=== PATIENT | female | born 1990 | race Caucasian/White ===

== ENCOUNTER 2017-04-12 19:51 | Emergency (ER) | payer BC ==
[~2017-04-12 19:51] MED LIST: LO LTAB PO
[2017-04-12 19:54] VITALS: BP 158/108; PULSE 117; RESP 22; TEMP 98; O2SAT 100
[2017-04-12] MEDS ORDERED: SERT-132 PO (20:13)
--- NOTE | 2017-04-12 20:18 | PD ---
HPI Chief Complaint: Suicide Ideation/Attempt Time Seen by Provider: 20:04 Travel History International Travel<30 days: No Contact w/Intl Traveler<30days: No Traveled to known affect area: No History of Present Illness HPI 26-year-old white female presents emergent department accompanied by friends with complaints of feeling depressed and suicidal. She states that she has overdosed in the past as well as trying to choke herself out. She has had a recent separation from her boyfriend. She states that she has not been ill recently. She has been having problems with work as well. She denies any toxic ingestions. She denies any drugs. She does drink alcohol. No tobacco. She is currently on her menstrual cycle now. [facility] Past Medical History Narrative Medical Depression with suicide attempt Depression: Yes Diabetes: No Patient Takes Glucophage: No Diminished Hearing: No Immunizations Current: Yes Tetanus Vaccination: < 5 Years ?: Unknown LMP: CURRENT Past Surgical History Surgical History: No Previous Surgery Social History Alcohol Use: Yes (OCC) Tobacco Use: No Substance Use: No Allergies-Medications (Allergen,Severity, Reaction): Coded Allergies: No Known Allergies (Unverified , 10/18/16) Reported Meds & Prescriptions Reported Meds & Active Scripts Active Lo Loestrin Fe 1/10 (Norethindrone-Ethinyl Estradiol-Fe) 1-10 Mg-Mcg Tab 1 Tab PO DAILY Reported Sertraline (Sertraline HCl) 50 Mg Tab 50 Mg PO HS Review of Systems General / Constitutional: No: Fever Eyes: No: Visual changes HENT: No: Headaches Cardiovascular: No: Chest Pain or Discomfort Respiratory: No: Shortness of Breath Gastrointestinal: No: Abdominal Pain Genitourinary: No: Dysuria Musculoskeletal: No: Pain Skin: No Rash Neurologic: No: Weakness Psychiatric: Positive: Depression, Suicidal Ideations, Mood Disorder, No: Anxiety, Disorder of Thought, Substance Abuse, Homicidal Ideation Endocrine: No: Polydipsia Hematologic/Lymphatic: No: Easy Bruising Physical Exam Narrative GENERAL: Well-nourished, well-developed patient. SKIN: Warm and dry. HEAD: Normocephalic and atraumatic. EYES: No scleral icterus. No injection or drainage. ENT: No nasal drainage noted. Mucous membranes pink. Airway patent. NECK: Supple, trachea midline. Moves head freely without obvious discomfort. CARDIOVASCULAR: Regular rate and rhythm without murmurs, gallops, or rubs. RESPIRATORY: Breath sounds equal bilaterally. No accessory muscle use. GASTROINTESTINAL: Abdomen soft, non-tender, nondistended. EXTREMITIES: No cyanosis or edema. BACK: Nontender without obvious deformity. No CVA tenderness. NEURO: Patient is alert and oriented. no sensorimotor deficits. Nonfocal. Normal speech. PSYCH: No delusions. No auditory or visual hallucinations. Flat affect. Insight is good judgment is fair. Data Data Last Documented VS Vital Signs Date Time Temp Pulse Resp B/P (MAP) Pulse Ox O2 Delivery O2 Flow Rate FiO2 04/12/17 22:01 96 18 111/69 (83) 98 Room Air 04/12/17 19:54 98.0 Orders Orders Complete Blood Count With Diff (04/12/17 20:13) Comprehensive Metabolic Panel (04/12/17 20:13) Thyroid Stimulating Hormone (04/12/17 20:13) Ed Urine Pregnancytest Poc (04/12/17 20:13) Psych Screen (04/12/17 20:13) Drug Screen, Random Urine (04/12/17 20:13) Alcohol (Ethanol) (04/12/17 20:13) Salicylates (Aspirin) (04/12/17 20:13) Tylenol (Acetaminophen) (04/12/17 20:13) Labs Laboratory Tests Test 04/12/17 20:30 White Blood Count 7.9 TH/MM3 Red Blood Count 4.89 MIL/MM3 Hemoglobin 15.6 GM/DL Hematocrit 43.6 % Mean Corpuscular Volume 89.1 FL Mean Corpuscular Hemoglobin 31.8 PG Mean Corpuscular Hemoglobin Concent 35.8 % Red Cell Distribution Width 13.0 % Platelet Count 324 TH/MM3 Mean Platelet Volume 6.5 FL Neutrophils (%) (Auto) 56.8 % Lymphocytes (%) (Auto) 37.0 % Monocytes (%) (Auto) 3.8 % Eosinophils (%) (Auto) 1.9 % Basophils (%) (Auto) 0.5 % Neutrophils # (Auto) 4.5 TH/MM3 Lymphocytes # (Auto) 2.9 TH/MM3 Monocytes # (Auto) 0.3 TH/MM3 Eosinophils # (Auto) 0.1 TH/MM3 Basophils # (Auto) 0.0 TH/MM3 CBC Comment DIFF FINAL Differential Comment Blood Urea Nitrogen 7 MG/DL Creatinine 0.81 MG/DL Random Glucose 113 MG/DL Total Protein 8.2 GM/DL Albumin 4.3 GM/DL Calcium Level 8.9 MG/DL Alkaline Phosphatase 47 U/L Aspartate Amino Transf (AST/SGOT) 20 U/L Alanine Aminotransferase (ALT/SGPT) 23 U/L Total Bilirubin 0.3 MG/DL Sodium Level 142 MEQ/L Potassium Level 3.4 MEQ/L Chloride Level 108 MEQ/L Carbon Dioxide Level 26.5 MEQ/L Anion Gap 8 MEQ/L Estimat Glomerular Filtration Rate 86 ML/MIN Thyroid Stimulating Hormone 3rd Gen 0.972 uIU/ML Salicylates Level LESS THAN 1.7 MG/DL Urine Opiates Screen NEG Acetaminophen Level LESS THAN 2.0 MCG/ML Urine Barbiturates Screen NEG Urine Amphetamines Screen NEG Urine Benzodiazepines Screen NEG Urine Cocaine Screen NEG Urine Cannabinoids Screen NEG Ethyl Alcohol Level 173 MG/DL MDM Medical Decision Making Medical Screen Exam Complete: Yes Emergency Medical Condition: Yes Medical Record Reviewed: Yes Interpretation(s) Laboratory Tests Test 04/12/17 20:30 White Blood Count 7.9 TH/MM3 Red Blood Count 4.89 MIL/MM3 Hemoglobin 15.6 GM/DL Hematocrit 43.6 % Mean Corpuscular Volume 89.1 FL Mean Corpuscular Hemoglobin 31.8 PG Mean Corpuscular Hemoglobin Concent 35.8 % Red Cell Distribution Width 13.0 % Platelet Count 324 TH/MM3 Mean Platelet Volume 6.5 FL Neutrophils (%) (Auto) 56.8 % Lymphocytes (%) (Auto) 37.0 % Monocytes (%) (Auto) 3.8 % Eosinophils (%) (Auto) 1.9 % Basophils (%) (Auto) 0.5 % Neutrophils # (Auto) 4.5 TH/MM3 Lymphocytes # (Auto) 2.9 TH/MM3 Monocytes # (Auto) 0.3 TH/MM3 Eosinophils # (Auto) 0.1 TH/MM3 Basophils # (Auto) 0.0 TH/MM3 CBC Comment DIFF FINAL Differential Comment Blood Urea Nitrogen 7 MG/DL Creatinine 0.81 MG/DL Random Glucose 113 MG/DL Total Protein 8.2 GM/DL Albumin 4.3 GM/DL Calcium Level 8.9 MG/DL Alkaline Phosphatase 47 U/L Aspartate Amino Transf (AST/SGOT) 20 U/L Alanine Aminotransferase (ALT/SGPT) 23 U/L Total Bilirubin 0.3 MG/DL Sodium Level 142 MEQ/L Potassium Level 3.4 MEQ/L Chloride Level 108 MEQ/L Carbon Dioxide Level 26.5 MEQ/L Anion Gap 8 MEQ/L Estimat Glomerular Filtration Rate 86 ML/MIN Thyroid Stimulating Hormone 3rd Gen 0.972 uIU/ML Salicylates Level LESS THAN 1.7 MG/DL Urine Opiates Screen NEG Acetaminophen Level LESS THAN 2.0 MCG/ML Urine Barbiturates Screen NEG Urine Amphetamines Screen NEG Urine Benzodiazepines Screen NEG Urine Cocaine Screen NEG Urine Cannabinoids Screen NEG Ethyl Alcohol Level 173 MG/DL Differential Diagnosis MDM: High Differential diagnoses: Schizophrenia, schizoaffective disorder, bipolar, anxiety, depression, adjustment reaction, mood disorder NOS, ODD, depressive disorder NOS, dementia, dementia with agitation, psychosis NOS, substance induced mood disorder, DMDD, Asperger syndrome, infection,electrolyte abnormality, malingering. Narrative Course Mental health screening discussed with the patient. Psychiatric screen ordered. The patient is been medically cleared. This is medical clearance for psychiatric admission, depression with suicidal ideation Diagnosis Primary Impression: Medical clearance for psychiatric admission Additional Impression: Depression with suicidal ideation Condition: Stable Charlie Agee Apr 12, 2017 20:18
[2017-04-12 20:47] LABS: AUTOMATED NEUTROPHIL # 4.5 TH/MM3 (1.8-7.7); BASOPHIL % 0.5 % (0.0-2.0); EOSINOPHIL # 0.1 TH/MM3 (0-0.4); EOSINOPHIL % 1.9 % (0.0-4.0); HEMATOCRIT 43.6 % (35.0-46.0); HEMOGLOBIN 15.6 GM/DL (11.6-15.3); LYMPHOCYTE # 2.9 TH/MM3 (1.0-4.8); MEAN CELL VOLUME 89.1 FL (80.0-100.0); MEAN CORPUSCULAR HEMOGLOBIN 31.8 PG (27.0-34.0); MEAN CORPUSCULAR HGB CONC 35.8 % (32.0-36.0); MEAN PLATELET VOLUME 6.5 FL (7.0-11.0); MONO % 3.8 % (0.0-8.0); MONOCYTE # 0.3 TH/MM3 (0-0.9); NEUT % 56.8 % (16.0-70.0); PLATELET COUNT 324 TH/MM3 (150-450); RED BLOOD COUNT 4.89 MIL/MM3 (4.00-5.30); WHITE BLOOD COUNT 7.9 TH/MM3 (4.0-11.0)
[2017-04-12 21:02] LABS: ALBUMIN 4.3 GM/DL (3.4-5.0); AST (GOT) 20 U/L (15-37); BICARBONATE 26.5 MEQ/L (21.0-32.0); BLOOD UREA NITROGEN 7 MG/DL (7-18); CALCIUM 8.9 MG/DL (8.5-10.1); CHLORIDE 108 MEQ/L (98-107); CREATININE 0.81 MG/DL (0.50-1.00); GLOMERULAR FILTRATION RATE 86 ML/MIN (>89); GLUCOSE,RANDOM 113 MG/DL (74-106); SODIUM (NA) 142 MEQ/L (136-145)
[2017-04-12 21:04] LABS: ALT (GPT) 23 U/L (10-53)
[2017-04-12 21:14] LABS: ALKALINE PHOSPHATASE 47 U/L (45-117); TOTAL BILIRUBIN ADULT 0.3 MG/DL (0.2-1.0); TOTAL PROTEIN 8.2 GM/DL (6.4-8.2)
[2017-04-12 21:15] LABS: ACETAMINOPHEN LESS THAN 2.0 MCG/ML (10.0-30.0)
[2017-04-12 22:01] VITALS: BP 111/69; PULSE 96; RESP 18; O2SAT 98
[2017-04-12] MEDS ORDERED: IBUPROFEN 600 MG TAB PO ONE (22:30)
[2017-04-13] MEDS ORDERED: SERTRALINE HCL 50 MG TAB PO ONE (00:45)
[2017-04-13 07:28] VITALS: BP 134/79; PULSE 90; RESP 18; TEMP 98.2; O2SAT 98
[2017-04-13 11:02] VITALS: BP 128/84; PULSE 86; RESP 18; O2SAT 98
--- NOTE | 2017-04-13 12:19 | PD ---
Physical Exam Date Seen by Provider: Apr 13, 2017 Time Seen by Provider: 12:19 Narrative 26-year-old female previously medically cleared for psychiatric evaluation has been seen by Dr. Fabian, and felt to be psychiatrically stable for discharge. Patient remains medically stable at this time. Patient to follow- up as per Dr. Fabian's psychiatry note. Data Data Last Documented VS Vital Signs Date Time Temp Pulse Resp B/P (MAP) Pulse Ox O2 Delivery O2 Flow Rate FiO2 04/13/17 11:02 86 18 128/84 (99) 98 Room Air 04/13/17 07:28 98.2 Orders Orders Complete Blood Count With Diff (04/12/17 20:13) Comprehensive Metabolic Panel (04/12/17 20:13) Thyroid Stimulating Hormone (04/12/17 20:13) Ed Urine Pregnancytest Poc (04/12/17 20:13) Psych Screen (04/12/17 20:13) Drug Screen, Random Urine (04/12/17 20:13) Alcohol (Ethanol) (04/12/17 20:13) Salicylates (Aspirin) (04/12/17 20:13) Tylenol (Acetaminophen) (04/12/17 20:13) Ibuprofen (Motrin) (04/12/17 22:30) Sertraline (Zoloft) (04/13/17 00:45) Diet Regular Basic (04/13/17 Breakfast) Diet Regular Basic (04/13/17 Lunch) Labs Laboratory Tests Test 04/12/17 20:30 White Blood Count 7.9 TH/MM3 Red Blood Count 4.89 MIL/MM3 Hemoglobin 15.6 GM/DL Hematocrit 43.6 % Mean Corpuscular Volume 89.1 FL Mean Corpuscular Hemoglobin 31.8 PG Mean Corpuscular Hemoglobin Concent 35.8 % Red Cell Distribution Width 13.0 % Platelet Count 324 TH/MM3 Mean Platelet Volume 6.5 FL Neutrophils (%) (Auto) 56.8 % Lymphocytes (%) (Auto) 37.0 % Monocytes (%) (Auto) 3.8 % Eosinophils (%) (Auto) 1.9 % Basophils (%) (Auto) 0.5 % Neutrophils # (Auto) 4.5 TH/MM3 Lymphocytes # (Auto) 2.9 TH/MM3 Monocytes # (Auto) 0.3 TH/MM3 Eosinophils # (Auto) 0.1 TH/MM3 Basophils # (Auto) 0.0 TH/MM3 CBC Comment DIFF FINAL Differential Comment Blood Urea Nitrogen 7 MG/DL Creatinine 0.81 MG/DL Random Glucose 113 MG/DL Total Protein 8.2 GM/DL Albumin 4.3 GM/DL Calcium Level 8.9 MG/DL Alkaline Phosphatase 47 U/L Aspartate Amino Transf (AST/SGOT) 20 U/L Alanine Aminotransferase (ALT/SGPT) 23 U/L Total Bilirubin 0.3 MG/DL Sodium Level 142 MEQ/L Potassium Level 3.4 MEQ/L Chloride Level 108 MEQ/L Carbon Dioxide Level 26.5 MEQ/L Anion Gap 8 MEQ/L Estimat Glomerular Filtration Rate 86 ML/MIN Thyroid Stimulating Hormone 3rd Gen 0.972 uIU/ML Salicylates Level LESS THAN 1.7 MG/DL Urine Opiates Screen NEG Acetaminophen Level LESS THAN 2.0 MCG/ML Urine Barbiturates Screen NEG Urine Amphetamines Screen NEG Urine Benzodiazepines Screen NEG Urine Cocaine Screen NEG Urine Cannabinoids Screen NEG Ethyl Alcohol Level 173 MG/DL [facility] Medical Record Reviewed: Yes Supervised Visit with RENEE: Yes Narrative Course 26-year-old female previously medically cleared for psychiatric evaluation has been seen by Dr. Fabian, and felt to be psychiatrically stable for discharge. Patient remains medically stable at this time. Patient to follow- up as per Dr. Fabian's psychiatry note. Diagnosis Primary Impression: Medical clearance for psychiatric admission Additional Impression: Depression with suicidal ideation Disposition: DISCHARGE HOME Condition: Stable Ruben Orozco Apr 13, 2017 12:19
== END 2017-04-13 13:45 | disposition home or self-care (01) ==
LOC: NEPD 19:51 → NEPJ 04-13 13:45
DX: F32.9 Major depressive disorder, single episode, unspecified (principal); R45.851 Suicidal ideations
CPT/HCPCS: 80053; 80307; 84443; 84703; 85025; 99284